=== PATIENT | female | born 1940 | race Caucasian/White ===

== ENCOUNTER 2018-02-06 21:39 | Inpatient (IN) | payer MEDICARE ==
[~2018-02-06] VITALS: Ht 170.2 cm; Wt 71.2 kg
--- NOTE | 2018-02-06 21:40 | NUR ---
Dr. Shah at bedside for MSE.
[2018-02-06 22:03] LABS: BASOPHILS # (AUTO) 0.1 K/uL (0.0-8.0); BASOPHILS % (AUTO) 0.9 % (0.0-2.0); EOSINOPHILS # (AUTO) 0.2 K/uL (0.0-0.7); EOSINOPHILS % (AUTO) 2.3 % (0.0-7.0); HEMATOCRIT 37.5 % (31.2-41.9); HEMOGLOBIN 12.8 g/dL (10.9-14.3); LYMPHOCYTES # (AUTO) 1.5 K/uL (20.0-40.0); LYMPHOCYTES % (AUTO) 21.5 % (20.5-51.5); MEAN CORPUSCULAR HEMOGLOBIN 31.6 uug (24.7-32.8); MEAN CORPUSCULAR HGB CONC 34 g/dL (32.3-35.6); MEAN CORPUSCULAR VOLUME 92.7 fL (75.5-95.3); MONOCYTES # (AUTO) 0.6 K/uL (2.0-10.0); MONOCYTES % (AUTO) 8.3 % (0.0-11.0); NEUTROPHILS # (AUTO) 4.7 K/uL (1.8-8.9); PLATELET COUNT (AUTO) 233 K/uL (179-408); RED BLOOD CELL COUNT(AUTO) 4.05 MIL/uL (3.63-4.92); WHITE BLOOD COUNT (AUTO) 6.9 K/uL (3.8-11.8)
[2018-02-06] MEDS ORDERED: DIVA250T4 (22:07)
[2018-02-06] MEDS ORDERED: METO25TA6 (22:07)
[2018-02-06] MEDS ORDERED: MULT-1045 (22:07)
[2018-02-06] MEDS ORDERED: AMIN30LI27 (22:07)
[2018-02-06] MEDS ORDERED: OMEG-145 (22:07)
[2018-02-06] MEDS ORDERED: QUET25TA (22:07)
[2018-02-06] MEDS ORDERED: ACET325C5 (22:07)
[2018-02-06] MEDS ORDERED: LEVO100C2 (22:07)
[2018-02-06] MEDS ORDERED: PHEN100C4 (22:07)
[2018-02-06] MEDS ORDERED: QUET200T (22:07)
[2018-02-06] MEDS ORDERED: CHOL200078 (22:07)
[2018-02-06] MEDS ORDERED: ATOR10TA (22:07)
[2018-02-06] MEDS ORDERED: LORA-259 (22:07)
[2018-02-06 22:20] LABS: CARBON DIOXIDE 29 mmol/L (21-32); CHLORIDE 103 mmol/L (98-107); CREATININE 0.7 mg/dL (0.6-1.3); GLUCOSE 113 mg/dL (74-106); POTASSIUM 3.9 mmol/L (3.5-5.1); UREA NITROGEN, BLOOD 15 mg/dL (7-18)
[2018-02-06 22:22] LABS: ETHANOL < 3 MG/DL (0-0)
[2018-02-06 22:26] LABS: ALANINE AMINOTRANSFERASE 18 U/L (14-59); ALKALINE PHOSPHATASE 119 U/L (50-136); ASPARTATE AMINOTRANSFERASE 21 U/L (15-37); BILIRUBIN,DIRECT 0.1 mg/dL (0.0-0.2); BILIRUBIN,TOTAL 0.4 mg/dL (0.2-1.0); TOTAL PROTEIN, SERUM 7.1 g/dL (6.4-8.2)
[2018-02-06 22:27] LABS: ACETAMINOPHEN < 2.0 ug/mL (10-30)
--- NOTE | 2018-02-06 22:43 | NUR ---
Report given to [facility]
[2018-02-06] MEDS ORDERED: LORAZEPAM 0.5 MG TABLET PO PRN (23:00)
[2018-02-06] MEDS ORDERED: MAGNESIUM HYDROXIDE 30 ML LIQUID UDC PO PRN (23:00)
[2018-02-06] MEDS ORDERED: MAG HYDROX/AL HYDROX/SIMETH 30 ML LIQUID UDC PO PRN (23:00)
[2018-02-06] MEDS: ACETAMINOPHEN 325 MG TABLET PO PRN (23:21)
[2018-02-06] MEDS: LORAZEPAM 0.5 MG TABLET PO PRN (23:22)
[2018-02-06] MEDS: METOPROLOL TARTRATE 25 MG TABLET PO SCH (23:30)
--- NOTE | 2018-02-06 23:49 | NUR ---
REFUSED SKIN CHECK. PT IS VERY UNCOOPERATIVE.
[2018-02-07 07:30] VITALS: BP 125/50
[2018-02-07 07:37] LABS: BASOPHILS # (AUTO) 0.1 K/uL (0.0-8.0); BASOPHILS % (AUTO) 1.3 % (0.0-2.0); EOSINOPHILS # (AUTO) 0.2 K/uL (0.0-0.7); EOSINOPHILS % (AUTO) 2.6 % (0.0-7.0); HEMATOCRIT 41.8 % (31.2-41.9); HEMOGLOBIN 14.4 g/dL (10.9-14.3); LYMPHOCYTES # (AUTO) 1.8 K/uL (20.0-40.0); LYMPHOCYTES % (AUTO) 28.9 % (20.5-51.5); MEAN CORPUSCULAR HEMOGLOBIN 32.1 uug (24.7-32.8); MEAN CORPUSCULAR HGB CONC 34 g/dL (32.3-35.6); MEAN CORPUSCULAR VOLUME 93.5 fL (75.5-95.3); MONOCYTES # (AUTO) 0.4 K/uL (2.0-10.0); MONOCYTES % (AUTO) 7.1 % (0.0-11.0); NEUTROPHILS # (AUTO) 3.8 K/uL (1.8-8.9); NEUTROPHILS % (AUTO) 60.1 % (38.5-71.5); PLATELET COUNT (AUTO) 246 K/uL (179-408); RED BLOOD CELL COUNT(AUTO) 4.47 MIL/uL (3.63-4.92); WHITE BLOOD COUNT (AUTO) 6.3 K/uL (3.8-11.8)
[2018-02-07 07:48] LABS: ALANINE AMINOTRANSFERASE 18 U/L (14-59); ALKALINE PHOSPHATASE 134 U/L (50-136); ASPARTATE AMINOTRANSFERASE 27 U/L (15-37); BILIRUBIN,TOTAL 0.4 mg/dL (0.2-1.0); CARBON DIOXIDE 27 mmol/L (21-32); CHLORIDE 104 mmol/L (98-107); CREATININE 0.8 mg/dL (0.6-1.3); GLUCOSE 113 mg/dL (74-106); MAGNESIUM 2.3 mg/dL (1.8-2.4); PHOSPHOROUS 3.9 mg/dL (2.5-4.9); POTASSIUM 3.9 mmol/L (3.5-5.1); TOTAL PROTEIN, SERUM 7.8 g/dL (6.4-8.2); UREA NITROGEN, BLOOD 12 mg/dL (7-18)
[2018-02-07 08:05] LABS: PHENYTOIN (DILANTIN) 4.6 ug/mL (10.0-20.0)
[2018-02-07 08:19] LABS: CHOLESTEROL 187 mg/dL (<200); HDL CHOLESTEROL 70 mg/dL (40-60); TRIGLYCERIDES 114 MG/DL (30-150)
[2018-02-07] MEDS: LORAZEPAM 0.5 MG TABLET PO PRN (08:44)
[2018-02-07] MEDS: PHENYTOIN SODIUM EXTENDED 100 MG CAPSULE.SA PO SCH ×3 (08:44→21:01)
[2018-02-07] MEDS: METOPROLOL TARTRATE 25 MG TABLET PO SCH ×2 (12:22→23:30)
[2018-02-07] MEDS: LORAZEPAM 1 MG TABLET PO PRN ×2 (12:22→21:01)
[2018-02-07 15:34] VITALS: BP 138/62
[2018-02-07] MEDS: DIVALPROEX SPRINKLE 125 MG CAP.SPRINK PO SCH (17:47)
[2018-02-07] MEDS: BENZTROPINE MESYLATE 0.5 MG TABLET PO SCH (17:47)
[2018-02-07] MEDS: HALOPERIDOL 1 MG TABLET PO SCH (17:48)
[2018-02-07 19:30] VITALS: BP 109/52
--- NOTE | 2018-02-07 20:45 | NUR ---
RECEIVED PATIENT IN THE HALLWAY, SHE IS NOTED A/O X 3, ABLE TO AMBULATE WITH STEADY GAIT AND ABLE TO MAKE HER NEEDS KNOWN. SHE IS NOTED HYPERVERBAL, HYPERRELIGIOUS, FLIGHT OF IDEAS, TANGENTAL. SHE STATED, "MY HAD A STROKE", I HAVE A 7 YEAR OLD SON THAT HE IS MISSING". PATIENT NOTED HAVING AH RESPONDING TO EXTERNAL STIMULI. POOR INSIGHT AND JUDGMENT NOTED TO THE REASON FOR HER ADMISSION. DENIES SI/HI ABLE TO CFS. SAFETY WAS EMPHASIS. WILL CONTINUE TO MONITOR.
[2018-02-07] MEDS: ATORVASTATIN 10 MG TABLET PO SCH (21:01)
--- NOTE | 2018-02-07 21:05 | NUR ---
PATIENT NOTED PACING THE HALLWAY, HYPERVERBAL, ANXIOUS. ATIVAN 1MG PO PRN WAS GIVEN, WILL CONTINUE TO MONITOR.
--- NOTE | 2018-02-08 | NUR ---
PATIENT NOTED IN BED ASLEEP.
[2018-02-08] MEDS: ACETAMINOPHEN 325 MG TABLET PO PRN (00:40)
--- NOTE | 2018-02-08 00:40 | NUR ---
PATIENT NOTED AWAKE IN THE HALLWAY, TEMAZEPAM 7.5 MG PO PRN WAS OFFERED; HOWEVER, REFUSED. SHE THEN ASKED TO TYLENOL. SHE STATED THAT "TYLENOL WILL HELP ME TO SLEEP". TYLENOL 650 MG PO PRN GIVEN FOR GENERALIZED PAIN PER PT REQUEST AND NURSING ASSESSMENT.WILL CONTINUE TO MONITOR.
--- NOTE | 2018-02-08 00:50 | NUR ---
PATIENT NOTED HAVING VH. SHE STATED, "MY SON WAS JUST HERE," "MY DOCTOR WAS JUST HERE." PT IS POOR HISTORIAN, CONTINUE WITH FLIGHT OF IDEAS. PT REFUSED TEMAZEPAM 7/5 MG PO PRN FOR INSOMNIA. WILL CONTINUE TO MONITOR.
[2018-02-08] MEDS: PHENYTOIN SODIUM EXTENDED 100 MG CAPSULE.SA PO SCH ×3 (05:26→21:00)
[2018-02-08] MEDS: LORAZEPAM 1 MG TABLET PO PRN (05:36)
--- NOTE | 2018-02-08 05:39 | NUR ---
PATIENT NOTED IN THE HALLWAY WITH FLIGHT OF IDEAS, DELUSIONAL, TANGENTAL, RESPONDING TO INTERNAL STIMULI, INCONGRUENT AFFECT, ANXIOUS AND AGITATIVE. ATIVAN 1MG PO PRN WAS GIVEN FOR ANXIETY. WILL CONTINUE TO MONITOR.
--- NOTE | 2018-02-08 06:28 | NUR ---
PATIENT SLEPT FOR APPROX 4.45 HRS THROUGH THE NIGHT. REFUSED TEMAZEPAM 7/5MG PO PRN FOR INSOMNIA LAST NIGHT. CONTINUE HYPERVERBAL, HYPERRELIGIOUS, WITH FLIGHT OF IDEAS. HOWEVER, SHE IS LESS ANXIOUS AND LESS AGITATED. ATIVAN 1MF PO PRN SOMEWHAT EFFECTIVE. WILL CONTINUE TO MONITOR.
[2018-02-08 08:00] VITALS: BP 115/79
[2018-02-08] MEDS: DIVALPROEX SPRINKLE 125 MG CAP.SPRINK PO SCH ×4 (09:00→21:00)
[2018-02-08] MEDS: HALOPERIDOL 1 MG TABLET PO SCH ×2 (09:00→11:54)
[2018-02-08] MEDS: BENZTROPINE MESYLATE 0.5 MG TABLET PO SCH ×3 (09:19→17:02)
--- NOTE | 2018-02-08 10:55 | NUR ---
9:00 AM medications offered several times, explained risks of not taking medications. Patient continues to refuse. Patient paranoid and delusional and claimed medications were not hers.
[2018-02-08] MEDS: METOPROLOL TARTRATE 25 MG TABLET PO SCH ×2 (11:53→23:30)
[2018-02-08] MEDS ORDERED: HALOPERIDOL 1 MG TABLET PO SCH ×2 (13:00→13:10)
--- NOTE | 2018-02-08 13:15 | NUR ---
DEPAKOTE SPRINKLES 250MG GIVEN EARLY AT 1154 SINCE PATIENT REFUSED THE MORNING DOSE.
--- NOTE | 2018-02-08 14:02 | NUR ---
Initial Discharge Instructions: Patient currently lives at [facility] [[address] [place] [address]; ]. Per pt, she denies ever having lived there stating, "You must have me confused with someone else." Spoke with Yane at the facility who states that the patient was being discharged from [facility] to a Board and Care in [place], [place]. Per pt, she lives at [facility] [[address] [place] [address] (address on pt's face sheet)]. LANDEN will speak with admissions at [facility]. LANDEN will continue to collaborate with pt and MD regarding appropriate discharge plans for the patient. SW will form a safe and proper discharge plan
[2018-02-08 16:00] VITALS: BP 127/71
[2018-02-08] MEDS: HALOPERIDOL 2 MG TABLET PO SCH (17:02)
[2018-02-08 19:30] VITALS: BP 130/74
--- NOTE | 2018-02-08 20:00 | NUR ---
RECEIVED PATIENT IN HER ROOM IN BED, SHE IS NOTED AWAKE A/O X 2, ABLE TO AMBULATE WITH STEADY GAIT AND ABLE TO MAKE HER NEEDS KNOWN. SHE IS NOTED HYPERVERBAL, HYPERRELIGIOUS, FLIGHT OF IDEAS, TANGENTAL. PATIENT NOTED HAVING AH/VH AND RESPONDING TO INTERNAL STIMULI. POOR INSIGHT AND JUDGMENT NOTED TO THE REASON FOR HER ADMISSION. DENIES SI/HI ABLE TO CFS. SAFETY WAS EMPHASIS. WILL CONTINUE TO MONITOR.
[2018-02-08] MEDS: ATORVASTATIN 10 MG TABLET PO SCH (21:00)
--- NOTE | 2018-02-08 22:00 | NUR ---
PATIENT REFUSED DEPAKOTE 500MG PO QHS AND LIPITOR PO QHS.SHE WAS ABLE TO TAKE DILANTIN PO QHS.MULTIPLE REDIRECTION GIVEN, HOWEVER, SHE REFUSED. WILL CONTINUE TO MONITOR.
[2018-02-09] MEDS: ACETAMINOPHEN 325 MG TABLET PO PRN (01:36)
--- NOTE | 2018-02-09 01:39 | NUR ---
RECEIVED PATIENT IN HER ROOM IN BED, SHE IS NOTED AWAKE A/O X 2, ABLE TO AMBULATE WITH STEADY GAIT AND ABLE TO MAKE HER NEEDS KNOWN. SHE IS NOTED HYPERVERBAL, HYPERRELIGIOUS, FLIGHT OF IDEAS, TANGENTAL. PATIENT NOTED HAVING AH/VH AND RESPONDING TO INTERNAL STIMULI. POOR INSIGHT AND JUDGMENT NOTED TO THE REASON FOR HER ADMISSION. DENIES SI/HI ABLE TO CFS. SAFETY WAS EMPHASIS. WILL CONTINUE TO MONITOR. Addendum: 02/09/18 at 0150 by JOHN RICHARDS RN 02/08/18 AT 1999
[2018-02-09] MEDS: LORAZEPAM 1 MG TABLET PO PRN ×2 (05:59→21:20)
[2018-02-09] MEDS: PHENYTOIN SODIUM EXTENDED 100 MG CAPSULE.SA PO SCH ×3 (05:59→21:31)
[2018-02-09 08:00] VITALS: BP 109/71
[2018-02-09] MEDS: DIVALPROEX SPRINKLE 125 MG CAP.SPRINK PO SCH ×3 (08:12→21:13)
[2018-02-09] MEDS: BENZTROPINE MESYLATE 0.5 MG TABLET PO SCH ×3 (08:14→17:53)
[2018-02-09] MEDS: HALOPERIDOL 2 MG TABLET PO SCH ×3 (08:14→17:54)
[2018-02-09] MEDS: METOPROLOL TARTRATE 25 MG TABLET PO SCH ×2 (11:42→23:30)
--- NOTE | 2018-02-09 14:56 | NUR ---
Firearms Report: Talent Development Director completed and submitted [employer]arms Report for 5250 certification on 02/09/18.
[2018-02-09 16:00] VITALS: BP 116/61
[2018-02-09 20:52] VITALS: BP 121/66
[2018-02-09] MEDS ORDERED: DOCUSATE SODIUM 100 MG/10 ML LIQUID UDC GT SCH (21:00)
[2018-02-09] MEDS: ATORVASTATIN 10 MG TABLET PO SCH (21:13)
[2018-02-09] MEDS: DOCUSATE SODIUM 100 MG/10 ML LIQUID UDC PO SCH (21:13)
[2018-02-09] MEDS: TEMAZEPAM 7.5 MG CAPSULE PO PRN (23:00)
--- NOTE | 2018-02-10 06:24 | NUR ---
GPS/NSG Patient first observed awake in room, patient alert, oriented times two, disorganized, disheveled, increased anxiety noted upon approach, required frequent redirection, hostile behavior displayed towards doctor and staff. Prn for insomnia as well as anxiety administered with effective outcome. Compliant with medication, asleep for 2330 medication, Will continue to monitor vital signs for patient well being as well as monitor and provide a safe environment.
[2018-02-10] MEDS: PHENYTOIN SODIUM EXTENDED 100 MG CAPSULE.SA PO SCH ×3 (06:41→21:39)
[2018-02-10 07:28] LABS: CARBON DIOXIDE 28 mmol/L (21-32); CHLORIDE 101 mmol/L (98-107); CREATININE 0.7 mg/dL (0.6-1.3); GLUCOSE 91 mg/dL (74-106); MAGNESIUM 2.4 mg/dL (1.8-2.4); PHOSPHOROUS 3.8 mg/dL (2.5-4.9); POTASSIUM 4.1 mmol/L (3.5-5.1); UREA NITROGEN, BLOOD 10 mg/dL (7-18)
[2018-02-10 07:30] VITALS: BP 101/55
[2018-02-10 07:52] LABS: BASOPHILS # (AUTO) 0.1 K/uL (0.0-8.0); BASOPHILS % (AUTO) 1.2 % (0.0-2.0); EOSINOPHILS # (AUTO) 0.1 K/uL (0.0-0.7); EOSINOPHILS % (AUTO) 2.1 % (0.0-7.0); HEMATOCRIT 38.2 % (31.2-41.9); HEMOGLOBIN 13.3 g/dL (10.9-14.3); LYMPHOCYTES # (AUTO) 1.2 K/uL (20.0-40.0); LYMPHOCYTES % (AUTO) 23.2 % (20.5-51.5); MEAN CORPUSCULAR HEMOGLOBIN 32.7 uug (24.7-32.8); MEAN CORPUSCULAR HGB CONC 35 g/dL (32.3-35.6); MEAN CORPUSCULAR VOLUME 93.5 fL (75.5-95.3); MONOCYTES # (AUTO) 0.4 K/uL (2.0-10.0); MONOCYTES % (AUTO) 7.8 % (0.0-11.0); NEUTROPHILS # (AUTO) 3.5 K/uL (1.8-8.9); NEUTROPHILS % (AUTO) 65.7 % (38.5-71.5); RED BLOOD CELL COUNT(AUTO) 4.08 MIL/uL (3.63-4.92); WHITE BLOOD COUNT (AUTO) 5.4 K/uL (3.8-11.8)
[2018-02-10 08:03] LABS: PLATELET COUNT (AUTO) 184 K/uL (179-408)
[2018-02-10] MEDS: DOCUSATE SODIUM 100 MG/10 ML LIQUID UDC PO SCH ×2 (09:00→20:16)
[2018-02-10] MEDS: HALOPERIDOL 2 MG TABLET PO SCH (09:06)
[2018-02-10] MEDS: BENZTROPINE MESYLATE 0.5 MG TABLET PO SCH (09:06)
[2018-02-10] MEDS: DIVALPROEX SPRINKLE 125 MG CAP.SPRINK PO SCH ×3 (09:06→20:12)
[2018-02-10] MEDS: METOPROLOL TARTRATE 25 MG TABLET PO SCH ×2 (12:18→20:15)
[2018-02-10 15:44] VITALS: BP 110/47
[2018-02-10] MEDS: BENZTROPINE MESYLATE 1 MG TABLET PO SCH (16:53)
[2018-02-10] MEDS: HALOPERIDOL 5 MG TABLET PO SCH (16:53)
[2018-02-10] MEDS ORDERED: HALOPERIDOL 2 MG TABLET PO SCH (17:00)
[2018-02-10] MEDS ORDERED: BENZTROPINE MESYLATE 0.5 MG TABLET PO SCH (17:00)
[2018-02-10] MEDS: ATORVASTATIN 10 MG TABLET PO SCH (20:12)
[2018-02-10 21:24] VITALS: BP 111/59
[2018-02-10] MEDS: TEMAZEPAM 7.5 MG CAPSULE PO PRN (22:22)
[2018-02-11] MEDS: PHENYTOIN SODIUM EXTENDED 100 MG CAPSULE.SA PO SCH ×3 (05:58→21:36)
[2018-02-11 07:30] VITALS: BP 106/50
[2018-02-11] MEDS: LORAZEPAM 1 MG TABLET PO PRN (08:26)
[2018-02-11] MEDS: BENZTROPINE MESYLATE 1 MG TABLET PO SCH ×2 (08:43→16:49)
[2018-02-11] MEDS: DIVALPROEX SPRINKLE 125 MG CAP.SPRINK PO SCH ×4 (08:43→20:39)
[2018-02-11] MEDS: HALOPERIDOL 5 MG TABLET PO SCH ×2 (08:43→16:49)
[2018-02-11] MEDS: DOCUSATE SODIUM 100 MG/10 ML LIQUID UDC PO SCH ×2 (08:43→20:47)
[2018-02-11] MEDS: METOPROLOL TARTRATE 25 MG TABLET PO SCH ×2 (08:43→20:39)
[2018-02-11 17:07] VITALS: BP 117/53
[2018-02-11 20:00] VITALS: BP 128/67
[2018-02-11] MEDS: ATORVASTATIN 10 MG TABLET PO SCH (20:39)
[2018-02-11] MEDS: ACETAMINOPHEN 325 MG TABLET PO PRN (22:27)
[2018-02-12] MEDS: PHENYTOIN SODIUM EXTENDED 100 MG CAPSULE.SA PO SCH ×3 (05:56→21:04)
[2018-02-12 07:30] VITALS: BP 103/49
[2018-02-12] MEDS: DOCUSATE SODIUM 100 MG/10 ML LIQUID UDC PO SCH ×3 (08:43→20:26)
[2018-02-12] MEDS: BENZTROPINE MESYLATE 1 MG TABLET PO SCH ×2 (08:43→17:02)
[2018-02-12] MEDS: HALOPERIDOL 5 MG TABLET PO SCH ×2 (08:43→17:01)
[2018-02-12] MEDS: DIVALPROEX SPRINKLE 125 MG CAP.SPRINK PO SCH ×4 (08:43→20:26)
[2018-02-12] MEDS: METOPROLOL TARTRATE 25 MG TABLET PO SCH ×2 (08:43→20:27)
[2018-02-12 15:29] VITALS: BP 123/52
--- NOTE | 2018-02-12 17:57 | NUR ---
Pt without significant change during shift. Pt is compliant with taking medications at this time. No episode of becoming aggressive or verbally screaming at staff or other patients. Continues to be hyperreligious. Able to provide self-care. Able to make needs known. Will continue to monitor for change.
[2018-02-12 20:00] VITALS: BP 104/43
[2018-02-12] MEDS: ATORVASTATIN 10 MG TABLET PO SCH (20:26)
--- NOTE | 2018-02-13 04:30 | NUR ---
Pt WOKE UP AND WALKED TO NURSING STATION, DELUSIONAL DURING CONVERSATION STATING, "WHERE'S SHELL? SHE'S MY HAIRSTYLIST AND I WAS JUST TALKING TO HER AN HOUR AGO." NURSING STAFF RE-ORIENTED Pt AND REDIRECTED HER BACK TO HER BED. Pt BELIEVES SHE IS GOING HOME TODAY AND REQUESTING FOR TOWEL SO SHE CAN GET READY TO LEAVE NOW. NURSE RE-ORIENTED Pt TO UNIT RULES AND PROTOCOLS REGARDING DISCHARGE, OFFERED ANTI-ANXIETY MED TO HELP HER RELAX AND GO BACK TO BED, Pt REFUSED AND STATED, "I ONLY TAKE DILANTIN AND THYROID PILL AT 6 AM." NURSE INFORMED Pt THAT SHE WILL RECEIVE THOSE MEDS IN THE MORNING BUT NOT NOW. Pt STATED UNDERSTANDING AND WENT BACK TO BED. NO AGGRESSIVE BEHAVIORS NOTED.
[2018-02-13] MEDS: PHENYTOIN SODIUM EXTENDED 100 MG CAPSULE.SA PO SCH ×3 (06:15→22:06)
[2018-02-13] MEDS: LEVOTHYROXINE SODIUM 100 MCG TABLET PO SCH (06:15)
--- NOTE | 2018-02-13 06:56 | NUR ---
Pt WAS COMPLIANT AND COOPERATIVE WITH MEDS AND CARE STAFF THIS MORNING, TOLERATED MEDS WELL. Pt IS STILL DELUSIONAL, STANDING IN THE HALLWAY OUTSIDE OF NURSE'S BREAK ROOM, THINKING THAT ONE OF THE NURSES IS HER HAIRSTYLIST. Pt IS STILL HYPERRELIGIOUS AND HYPERVERBAL, TANGENTIAL WITH SPEECH.
[2018-02-13 07:30] VITALS: BP 105/48
[2018-02-13] MEDS: BENZTROPINE MESYLATE 1 MG TABLET PO SCH ×2 (08:36→16:20)
[2018-02-13] MEDS: DOCUSATE SODIUM 100 MG/10 ML LIQUID UDC PO SCH ×2 (08:36→20:25)
[2018-02-13] MEDS: DIVALPROEX SPRINKLE 125 MG CAP.SPRINK PO SCH ×4 (08:36→20:26)
[2018-02-13] MEDS: HALOPERIDOL 5 MG TABLET PO SCH ×2 (08:36→16:20)
[2018-02-13] MEDS: METOPROLOL TARTRATE 25 MG TABLET PO SCH ×2 (08:37→20:27)
[2018-02-13 16:31] VITALS: BP 114/54
[2018-02-13 19:30] VITALS: BP 111/50
[2018-02-13] MEDS: ATORVASTATIN 10 MG TABLET PO SCH (20:26)
--- NOTE | 2018-02-13 22:06 | NUR ---
Pharmacy Note: When Dilantin 100mg was scanned, it came up as unknown NDC number. Unable to scan medication. Manually administered Extended Dilantin 100mg to Pt. implant polisherFILIPPO [email or web address].
[2018-02-14] MEDS: PHENYTOIN SODIUM EXTENDED 100 MG CAPSULE.SA PO SCH ×3 (06:16→21:42)
[2018-02-14] MEDS: LEVOTHYROXINE SODIUM 100 MCG TABLET PO SCH (06:16)
[2018-02-14 07:30] VITALS: BP 131/71
[2018-02-14] MEDS: BENZTROPINE MESYLATE 1 MG TABLET PO SCH ×2 (08:25→16:55)
[2018-02-14] MEDS: METOPROLOL TARTRATE 25 MG TABLET PO SCH ×2 (08:26→20:14)
[2018-02-14] MEDS: HALOPERIDOL 5 MG TABLET PO SCH ×2 (08:26→16:55)
[2018-02-14] MEDS: DOCUSATE SODIUM 100 MG/10 ML LIQUID UDC PO SCH ×2 (08:26→20:13)
[2018-02-14] MEDS: DIVALPROEX SPRINKLE 125 MG CAP.SPRINK PO SCH ×4 (08:26→20:13)
[2018-02-14] MEDS: LORAZEPAM 1 MG TABLET PO PRN (12:57)
[2018-02-14 16:28] VITALS: BP 118/65
[2018-02-14 19:51] VITALS: BP 108/49
[2018-02-14] MEDS: ATORVASTATIN 10 MG TABLET PO SCH (20:13)
[2018-02-15] MEDS: ACETAMINOPHEN 325 MG TABLET PO PRN (01:36)
[2018-02-15] MEDS: PHENYTOIN SODIUM EXTENDED 100 MG CAPSULE.SA PO SCH ×2 (06:09→13:21)
[2018-02-15] MEDS: LEVOTHYROXINE SODIUM 100 MCG TABLET PO SCH (06:09)
--- NOTE | 2018-02-15 07:30 | NUR ---
RECEIVED A 77 Y/O F PATIENT, SHE IS NOTED A/O X 3, ABLE TO AMBULATE WITH STEADY GAIT AND ABLE TO MAKE HER NEEDS.
[2018-02-15 08:00] VITALS: BP 115/51
--- NOTE | 2018-02-15 08:20 | NUR ---
DC Note: Patient will be discharged to [facility] [[address] [place] [address]; [phone]] via ambulance. Spoke with Romeo at the facility who states they are ready to accept the patient today. Patient is aware and agreeable with discharge plans. Patient will follow-up at the facility with Dr. Lopez (Magnetic Resonance Imaging Coordinator) and Dr. Beard (Psychiatrist).
[2018-02-15] MEDS: DOCUSATE SODIUM 100 MG/10 ML LIQUID UDC PO SCH (09:00)
[2018-02-15] MEDS: METOPROLOL TARTRATE 25 MG TABLET PO SCH (09:00)
[2018-02-15] MEDS: HALOPERIDOL 5 MG TABLET PO SCH ×2 (09:24→16:28)
[2018-02-15] MEDS: DIVALPROEX SPRINKLE 125 MG CAP.SPRINK PO SCH ×3 (09:24→16:29)
[2018-02-15] MEDS: BENZTROPINE MESYLATE 1 MG TABLET PO SCH ×2 (09:30→16:29)
--- NOTE | 2018-02-15 14:34 | NUR ---
DC note: Report given to Ashly ZIMMERMAN RN
[2018-02-15 16:00] VITALS: BP 144/65
--- NOTE | 2018-02-15 17:00 | NUR ---
PATIENT DISCHARGED TO SNF VIA AMBULANCE, PT CALM AND COOPERATIVE, RECEIVED ALL HER DUE MEDICATIONS BEFORE LEAVING. TOOK ALL HER BELONGINGS.
== END 2018-02-15 17:00 | DRG 885 ==
LOC: ER 21:42 → GPS 22:55
PROVIDERS: ADMIT Psychiatry & Neurology Psychosomatic Medicine; ATTEND Internal Medicine
DX: F25.0 Schizoaffective disorder, bipolar type (principal); E44.1 Mild protein-calorie malnutrition; E87.1 Hypo-osmolality and hyponatremia; F29 Unspecified psychosis not due to a substance or known physiological condition; G40.909 Epilepsy, unspecified, not intractable, without status epilepticus; E03.9 Hypothyroidism, unspecified; I10 Essential (primary) hypertension; F41.9 Anxiety disorder, unspecified; E78.5 Hyperlipidemia, unspecified; Z88.0 Allergy status to penicillin; Z88.2 Allergy status to sulfonamides; E88.09 Other disorders of plasma-protein metabolism, not elsewhere classified; Z68.24 Body mass index [BMI] 24.0-24.9, adult; Z73.6 Limitation of activities due to disability
CPT/HCPCS: 36415; 80164; 82378; 83735; 84100; 84443; 85025; 93005; A4663; G0480; G0480-TC